=== PATIENT | male | born 1960 | race Caucasian/White ===

== ENCOUNTER 2021-01-22 03:39 | Emergency (ER) | payer OTHER ==
[2021-01-22] MEDS ORDERED: ILOTYCIN1 GM OS (04:35)
== END 2021-01-22 04:52 | disposition home or self-care (01) ==
LOC: FER 03:39
DX: S05.02XA Injury of conjunctiva and corneal abrasion without foreign body, left eye, initial encounter (principal); H01.006 Unspecified blepharitis left eye, unspecified eyelid; I10 Essential (primary) hypertension; E11.9 Type 2 diabetes mellitus without complications; F17.220 Nicotine dependence, chewing tobacco, uncomplicated; Z88.0 Allergy status to penicillin; X58.XXXA Exposure to other specified factors, initial encounter
CPT/HCPCS: 99283